=== PATIENT | female | born 1940 | race Caucasian/White ===

== ENCOUNTER 2020-06-02 16:18 | Emergency (ER) | payer MEDICARE, SELFPAY ==
--- NOTE | ~2020-06-02 | CT_ITS ---
EXAMINATION: CT cervical spine wo con DATE: 06/02/2020 17:14 INDICATION: Neck injury. TECHNIQUE: Computed tomography (CT) of the cervical spine was performed without intravenous contrast. Automated exposure control and iterative reconstruction technique were employed. The dose-length pro duct was 401.12 mGy-cm. COMPARISON: CT cervical spine 01/04/2019 FINDINGS: There is kyphosis of cervical spine. There is 2 mm anterolisthesis of C4 on C5 and C7 on T1 . There is interbody fusion at C5-C6. Vertebral body heights are normal. There is mildly decreased di sc height at C3-C4, moderately decreased disc height at C4-C5, severely decreased disc height at C6-C 7, and mildly decreased disc height at C7-T1. The following disc levels are specifically discussed: C2-C3: There is no uncovertebral joint osteoarthritis. There is moderate right and mild left facet alfonso int osteoarthritis. There is no neural foraminal stenosis. There is mild central canal stenosis. C3-C4: There is mild left uncovertebral joint osteoarthritis. There is severe bilateral facet joint o steoarthritis. There is mild bilateral neural foraminal stenosis. There is mild central canal stenosi s. C4-C5: There is no uncovertebral joint osteoarthritis. There is severe right and moderate left facet joint osteoarthritis. There is mild right neural foraminal stenosis. There is mild central canal sten osis. C5-C6: There is mild bilateral uncovertebral joint hypertrophy. There is ankylosis of the facet joint s with moderate hypertrophy. There is mild bilateral neural foraminal stenosis. There is mild central canal stenosis. C6-C7: There is severe bilateral uncovertebral joint osteoarthritis. There is severe bilateral facet joint osteoarthritis. There is mild right and moderate left neural foraminal stenosis. There is mild central canal stenosis. C7-T1: There is no uncovertebral joint osteoarthritis. There is severe bilateral facet joint osteoart hritis. There is mild bilateral neural foraminal stenosis. There is mild central canal stenosis. IMPRESSION: 1. No fracture. 2. Severe cervical spondylosis. Reviewed, dictated and finalized at location A. [place] [employer]PA[employer] MANAGER
--- NOTE | ~2020-06-02 | CT_ITS ---
EXAMINATION: CT brain wo con DATE: 06/02/2020 17:14 INDICATION: Head injury. TECHNIQUE: Computed tomography (CT) of the head was performed without intravenous contrast. The mA wa s adjusted according to patient size. Iterative reconstruction technique was employed. The dose-lengt h product was 605.33 mGy-cm. COMPARISON: Head CT 01/04/2019 FINDINGS: There are old lacunar infarcts in the gunner. There are old infarcts involving the left basal ganglia, anterior limb left internal capsule, and bilateral thalami. There are scattered areas of lo w attenuation in the cerebral white matter. There is a 10 mm saccular aneurysm of the basilar tip. Th ere is no intracranial hemorrhage, acute infarction, or abnormal intracranial mass lesion. The ventri cles are normal in size. The orbits are normal. There is mucosal thickening in the paranasal sinuses. The mastoid air cells are normal. IMPRESSION: 1. 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 2. Stable extensive nonspecific cerebral white matter disease, which likely represents chronic small vessel ischemic disease. 3. 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 Reviewed, dictated and finalized at location A. FRAME DEVELOPER IMPRESSION: 1. Old infarcts involving the ugnner, left basal ganglia, left internal capsule, and bilateral thalami. 2. Stable extensive nonspecific cerebral white matter disease, which likely rep resents chronic small vessel ischemic disease. 3. 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
--- NOTE | 2020-06-02 16:27 | ED.FALL ---
HPI - Fall General Chief Complaint: Fall Stated Complaint: fall Time Seen by Provider: 06/02/20 16:27 History of Present Illness HPI Narrative: Unwitnessed fall at the assisted living. Slid out of bed and found on the ground. It is believed that she did hit her head. She denies LOC. She has no complaints. She states that she did not want to come, but they made her. No weakness, numbness, dizziness. Related Data Allergies Allergy/AdvReac Type Severity Reaction Status Date / Time atorvastatin Allergy Unknown Unknown Verified 06/02/20 16:45 benzoin Allergy Unknown Unknown Verified 06/02/20 16:45 codeine Allergy Unknown Unknown Verified 06/02/20 16:45 duloxetine Allergy Unknown Unknown Verified 06/02/20 16:45 benzene AdvReac Intermediate itching/chani Verified 06/02/20 16:45 h Review of Systems Review of Systems: Narrative: ROS mildly limited by dementia Constitutional: Constitutional: Denies fever(s) and Denies weakness Eyes: Eyes: Reports no additional eye complaints Cardiovascular: Cardiovascular: Denies chest pain Respiratory: Respiratory: Denies dyspnea Gastrointestinal: Gastrointestinal: Denies abdominal pain and Denies nausea Musculoskeletal: Musculoskeletal: Denies back pain Neurologic: Denies dizziness, Denies syncope and Denies weakness PMFSH Past Medical History Medical History (Updated 06/02/20 @ 17:54 by Oscar Summers MD) Dementia Family History Family History (Updated 03/06/11 @ 08:23 by DOCTOR UNKNOWN) Other Family history of arthritis Hypertension Social History Social History Smoking status: Never smoker Alcohol intake: current Gender identity (if verbalized by the patient): Female Exam Const: General: no acute distress and alert Nutritional Appearance: well nourished Orientation/consciousness: patient oriented x3 HENMT: Head: normal to inspection, no contusions and no lacerations Eyes: Pupils: Equal, round and reactive pupils present EOM: EOMs intact bilaterally Neck: Neck: normal visual inspection Resp: Effort & Inspection: normal respiratory effort Auscultation: clear to auscultation bilaterally Cardio: Rate: regular rate Rhythm: regular rhythm GI: GI Palp: Yes Soft to palpation and No Tenderness to palpation present (GI) Skin: General skin exam: normal color Wounds: no wounds Neuro: General: patient oriented x3, moves all extremities, no focal motor deficits and CN's II-XI intact bilaterally Cranial nerves: Yes Nystagmus not present Speech: normal speech Extrem: General: normal to inspection and no edema Course Vital Signs Vital signs: Vital Signs Temperature 36.8 C 06/02/20 16:40 Pulse Rate 70 06/02/20 16:40 Respiratory Rate 20 06/02/20 16:40 Blood Pressure 158/89 H 06/02/20 16:40 Pulse Oximetry 99 06/02/20 16:40 Temperature 36.8 C 06/02/20 16:40 Pulse Rate 70 06/02/20 16:40 Respiratory Rate 20 06/02/20 16:40 Blood Pressure 158/89 H 06/02/20 16:40 Pulse Oximetry 99 06/02/20 16:40 MDM - Fall MDM Narrative Medical decision making narrative: No obvious injury on exam. No complaints. I will obtain CT of the head an c-spine. Differential Diagnosis Differential diagnosis: Likely concussion without loss of consciousness and other (SDH, SAH) Medical Records Attestation: I reviewed the patient's medical records. Imaging Data Radiologist's impression: ITS Impressions Head CT 06/02/20 17:19 IMPRESSION: 1. 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 2. Stable extensive nonspecific cerebral white matter disease, which likely represents chronic small vessel ischemic disease. 3. 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 Cervical Spine CT 06/02/20 17:24 IMPRESSION: 1. No fracture. 2. Severe cervical spondylosis. Discharge Plan Discharge Clinical Impression: Closed head injury Patient Disposition: [facility]
[2020-06-02 16:40] VITALS: BP 158/89; PULSE 70; RESP 20; TEMP 36.8; O2SAT 99
[2020-06-02 19:18] VITALS: BP 152/82; PULSE 68; RESP 20; O2SAT 99
== END 2020-06-02 19:38 ==
PROVIDERS: Emergency Provider Emergency Medicine
DX: S09.90XA Unspecified injury of head, initial encounter (principal); F03.90 Unspecified dementia, unspecified severity, without behavioral disturbance, psychotic disturbance, mood disturbance, and anxiety; M47.812 Spondylosis without myelopathy or radiculopathy, cervical region; R90.82 White matter disease, unspecified; I67.1 Cerebral aneurysm, nonruptured; W10.9XXA Fall (on) (from) unspecified stairs and steps, initial encounter
CPT/HCPCS: 70450; 72125; 99284